=== PATIENT | female | born 1985 | race Caucasian/White ===

== ENCOUNTER 2017-12-02 14:18 | Emergency (ER) | payer OTHER ==
[2017-12-02 15:17] LABS: URINE PH (Dip) POC 5.5 (5.0-8.5)
[2017-12-02 15:17] LABS: URINE BLOOD (Dip) POC 1+ (NEGATIVE); URINE GLUCOSE (Dip) POC Negative (NEGATIVE); URINE KETONES (Dip) POC 3+ (NEGATIVE); URINE LEUKOCYTE EST (Dip) POC Negative (NEGATIVE); URINE NITRITE (Dip) POC Negative (NEGATIVE); URINE TOTAL PROTEIN POC 2+ (NEGATIVE)
[2017-12-02] MEDS: IBUPROFEN 600 MG TAB PO (15:26)
[2017-12-02] MEDS: ACETAMINOPHEN 500 MG TAB PO (15:27)
[2017-12-02] MEDS: SOD CHLORIDE 0.9% 1,000 ML IV ×2 (15:29→16:38)
[2017-12-02] MEDS ORDERED: AZITHROMYCIN 250 MG TAB PO (18:00)
[2017-12-02] MEDS: AZITHROMYCIN 250 MG TAB PO (18:08)
[2017-12-02] MEDS: AMOXICILLIN 500 MG CAP PO (18:08)
== END 2017-12-02 18:20 | disposition home or self-care (01) ==
LOC: FTE 14:18
DX: J18.9 Pneumonia, unspecified organism (principal)
CPT/HCPCS: 71045; 81003; 81025; 82962; 87400; 87880; 99284-25

== ENCOUNTER 2018-08-11 15:56 | Emergency (ER) | payer OTHER ==
[2018-08-11] MEDS: ACETAMINOPHEN 325 MG TAB PO ×2 (17:37→17:39)
[2018-08-11 17:45] LABS: ADD MAN DIFF? NO
[2018-08-11 17:55] LABS: BASOPHILS % 0.3 % (0.0-2.0); EOSINOPHILS # 0.1 10^3/ul (0.0-0.5); EOSINOPHILS % 0.8 % (0.0-7.0); HEMATOCRIT 36.8 % (37.0-47.0); LYMPHOCYTES # 1.8 10^3/ul (0.8-2.9); LYMPHOCYTES % 13.9 % (15.0-51.0); MEAN CORPUSCULAR HEMOGLOBIN 29.8 pg (29.0-33.0); MEAN CORPUSCULAR HGB CONC 32.6 g/dl (32.0-37.0); MEAN CORPUSCULAR VOLUME 91.3 fl (82.0-101.0); MEAN PLATELET VOLUME 9.5 fl (7.4-10.4); MONOCYTE # 0.6 10^3/ul (0.3-0.9); MONOCYTES % 4.7 % (0.0-11.0); NEUTROPHIL # 10.4 10^3/ul (1.6-7.5); NEUTROPHILS % 79.8 % (39.0-77.0); PLATELET COUNT 266 10^3/UL (140-415); RED BLOOD COUNT 4.03 10^6/ul (4.20-5.40); RED CELL DISTRIBUTION WIDTH 13.2 % (11.5-14.5)
== END 2018-08-11 20:12 | disposition home or self-care (01) ==
LOC: FTE 15:56
DX: O20.9 Hemorrhage in early pregnancy, unspecified (principal); Z3A.01 Less than 8 weeks gestation of pregnancy
CPT/HCPCS: 36415; 76801; 76817; 84702; 85025; 86900; 86901; 88305; 99284-25